=== PATIENT | female | born 1990 | race Caucasian/White ===

== ENCOUNTER 2023-11-28 16:56 | Inpatient (IN) | payer MEDICAID, SELFPAY ==
[2023-11-28 16:30] VITALS: BP 127/85; PULSE 91
--- NOTE | 2023-11-28 16:34 | PCM.HP.OB ---
HPI - General General Date of Admission: 11/28/23 HPI Narrative DELMAR LONG, is a 32 F @ 40 weeks who presents for IOL due to decreased FM and Variable on NST. pt was seen in office for decreased movement - had Variable on NST and discussion about IOL was had with patient. Pt agreeable at this time. NST FHR Rate Baby A Baseline: 130 Variability:: Moderate Accelerations:: 15 x 15 Decelerations:: None NST Reactive:: Yes FHR Category:: Category I Uterine Activity:: occasional Vital Signs Vital Signs Vital Signs: 11/28/23 16:30 11/28/23 16:30 Pulse Rate 91 Blood Pressure 127/85 H BP Systolic 127 BP Diastolic 85 Labs Labs Labs: No Data to Display Assessment & Plan (1) Obesity affecting in third trimester: (2) Tobacco use disorder affecting in third trimester, antepartum: (3) Excessive weight gain during in third trimester: (4) Decreased movement affecting management of mother, antepartum: (5) 40 weeks gestation of : PLAN: Plan Admit to L&D Montior FHR/TOCO Epidural if requested for pain Monitor VS Anticipate BRAGA/Cytotec
[2023-11-28 16:57] VITALS: BMI 41.3
[2023-11-28 19:16] LABS: Absolute Lymphocyte Count 2.83 X10^3/uL (0.83-4.51); Absolute Neutrophil Count 12.4 X10^3/uL (2.0-7.7); Basophil# 0.08 X10^3/uL; Basophil% 0.5 % (0-1); Eosinophil# 0.49 X10^3/uL; Eosinophils% 2.8 % (0-5); Hematocrit 37.1 % (37-47); Hemoglobin 12.6 g/dL (12.0-15.0); Lymphocyte # 2.83 X10^3/ul (0.83-4.51); Mean Corpuscular Hgb 31.9 pg (27.0-32.0); Mean Corpuscular Volume 93.9 fL (81-99); Mean Platelet Vol. 8.9 fl (6.2-12.0); Monocyte# 1.38 X10^3/uL; Monocyte% 7.8 % (0-10); NRBC Flagged by Analyzer 0 % (0-5); Neutrophil # 12.37 X10^3/uL (2.7-7.7); Platelet Count 367 K/mm3 (150-450); RBC Distribution Width CV 13.7 % (11.6-14.6); RBC Distribution Width SD 46.4 fl (35.1-43.9); Red Blood Count 3.95 M/mm3 (4.2-5.4); White Blood Count 17.7 K/mm3 (4.4-11.0)
[2023-11-28] MEDS: 0.9% Normal Saline Single 100 ML IV.SOLN. INTRA-UTER (19:20)
[2023-11-28 19:27] VITALS: BP 138/83; PULSE 229; PULSE 68; RESP 16; TEMP 36.3; O2SAT 83; O2SAT 98
--- NOTE | 2023-11-28 19:32 | PCM.PN.BLA ---
Progress Note Pt seen at bedside, transcervical ramsey placed. FHR Cat 1, occasional ctx. Will start Cytotec 8pm , when ramsey out will start pitocin.
[2023-11-28 19:51] LABS: Syphilis Antibodies Non-reactive
[2023-11-28] MEDS: miSOPROStol 25 MCG TABLET PO (19:55)
[2023-11-28] MEDS: Lactated Ringers 1,000 ML 50 ML IV (21:55)
[2023-11-28 23:47] VITALS: PULSE 81; RESP 16; TEMP 36.3; O2SAT 97
[2023-11-28 23:48] VITALS: BP 119/68; PULSE 78
[2023-11-29] VITALS (56 sets, daily range): BP systolic 88–137; BP diastolic 48–88; PULSE 68–163; RESP 14–141; TEMP 36.1–37; O2SAT 82–100
[2023-11-29] MEDS: Oxytocin 15 Units/NS 250ml 15 UNITS/250 ML IV.SOLN 2 UNITS IV (00:05)
[2023-11-29 00:51] LABS: Amphetamine Urine VISTA NEGATIVE (<1000 ng/mL); Barbiturate Urine VISTA NEGATIVE (< 200 ng/mL); Benzodiazepine Urine VISTA NEGATIVE (< 200 ng/mL); Cocaine Urine VISTA NEGATIVE (< 300 ng/mL); Ecstacy Urine VISTA NEGATIVE (< 500 ng/mL); Methadone Urine VISTA NEGATIVE (< 300 ng/mL); PCP Urine VISTA NEGATIVE (< 25 ng/mL); THC Urine VISTA NEGATIVE (< 50 ng/mL); Vista UDS pH Range 6
[2023-11-29] MEDS: LACTATED RINGERS 500 ML 999 ML IV ×2 (02:16→03:20)
[2023-11-29] MEDS: Lactated Ringers 1,000 ML 999 ML IV (05:30)
[2023-11-29] MEDS: fentaNYL-bupivacaine (epidural) 100 ML BAG EPIDURAL (06:46)
[2023-11-29] MEDS: Lactated Ringers 1,000 ML 200 ML IV (07:00)
--- NOTE | 2023-11-29 08:01 | PCM.PN.CNM ---
Subjective Subjective Patient seen at bedside. Comfortable with epidural. Objective Data Objective Data Vital Signs: Vital Signs Temp Pulse Resp BP Pulse Ox 97.5 F L 163 H 141 H 106/64 82 11/29/23 07:24 11/29/23 07:35 11/29/23 07:24 11/29/23 07:35 11/29/23 07:35 Weight: 233 lb 2 oz Body Mass Index (BMI) 41.3 Intake & Output: Intake and Output for Last 24 Hours 11/27/23 11/28/23 11/29/23 23:59 23:59 23:59 Intake Total 1257.04 / 1257.04 Balance 1257.04 / 1257.04 Lab / Micro Data 11/28/23 18:50 Labs: Laboratory Results - last 24 hr 11/28/23 18:50: WBC 17.7 H, RBC 3.95 L, Hgb 12.6, Hct 37.1, MCV 93.9, MCH 31.9, MCHC 34.0, RDW Std Deviation 46.4 H, RDW Coeff of Luanne 13.7, Plt Count 367, MPV 8.9, Immature Gran % (Auto) 2.900 H, Neut % (Auto) 70.0, Lymph % (Auto) 16.0 L, Wilkinson % (Auto) 7.8, Eos % (Auto) 2.8, Baso % (Auto) 0.5, Absolute Neuts (auto) 12.4 H, Absolute Lymphs (auto) 2.83, Nucleated RBC % 0, Syphilis Total Ab Non-reactive, Antibody Screen NEGATIVE 11/28/23 23:38: Urine Opiates Screen NEGATIVE, Urine Methadone Screen NEGATIVE, Ur Barbiturates Screen NEGATIVE, Ur Phencyclidine Scrn NEGATIVE, Ur Amphetamines Screen NEGATIVE, MDMA (Ecstasy) Screen NEGATIVE, U Benzodiazepines Scrn NEGATIVE, Urine Cocaine Screen NEGATIVE, U Cannabinoids Screen NEGATIVE, Ur Drug Screen Comment ROS Eyes Eyes: Denies blurry vision Cardiovascular Cardiovascular: Reports none; Denies chest pain at rest, chest pain with activity or dizziness Respiratory/Chest Respiratory/Chest: Denies cough or dyspnea Gastrointestinal Gastrointestinal: Reports none and other; Denies diarrhea or vomiting Genitourinary Genitourinary: Denies dysuria Musculoskeletal Musculoskeletal: Reports none Integumentary Integumentary: Reports none; Denies rash Neurologic Neurologic: Denies dizziness, headache(s) or other visual disturbances Psychiatric Psychiatric: Reports none Physical Exam Const alert and no apparent distress General Appearance: cooperative Orientation / Consciousness: awake Exam Limitations: no limitations HEENT normocephalic Head and Scalp: normal to inspection Eyes General Eye: normal appearance of both eyes Neck full ROM Lymph Lymphatic: no lymphadenopathy noted Chest inspection of chest normal Resp normal respiratory effort and normal air movement Effort and Inspection: symmetric chest movement Auscultation: clear to auscultation bilaterally Cardio regular rate GI soft to palpation, non-tender and non-distended Inspection: and other Manual OB Exam: presentation cephalic, dilated 4, effaced 60 and station -2 Amniotic Fluid: clear amniotic fluid Back/Spine normal ROM Extremity no calf tenderness Skin no rashes or lesions noted General Skin Exam: no breakdown Neuro oriented x3 and CN's II-XII intact bilaterally Psych mental status grossly normal Assessment & Plan (1) 40 weeks gestation of : (2) Decreased movement affecting management of mother, antepartum: (3) Excessive weight gain during in third trimester: (4) Tobacco use disorder affecting in third trimester, antepartum: (5) Obesity affecting in third trimester: (6) Depression: (7) Psychiatric disorder: COMMENT: PTSD (8) POTS (postural orthostatic tachycardia syndrome): (9) Anxiety: PLAN: Plan Cat. 2 tracing at times Pitocin IV currently off AROM for moderate amount of clear fluid CE 60/-2 FSE and IUPC placed without difficulty
[2023-11-29] MEDS: Amnioinfusion- 0.9% NS 1,000 ML IV.SOLN. INTRA-UTER (09:03)
[2023-11-29] MEDS: Acetaminophen 500 MG Tablet PO (10:23)
[2023-11-29] MEDS: Sodium Citrate/Citric Acid 30 ML UDC PO (10:23)
--- NOTE | 2023-11-29 10:27 | OP.PCM_ITS ---
Maternal Data Information MELANIE Calculator Estimated Delivery Date Method Current WG Current Estimate 11/26/23 Manual 40w 3d Details Operative Information Date of Procedure: 11/29/23 Pre-Operative Diagnosis: (1) Inability of fetus to tolerate labor Post-Operative Diagnosis: Same Indications for : Repeat Elective and Nonreassuring Status Indications Narrative: The patient's pitocin was restarted and just over 1 hour later recurrent decelerations were noted. Cervical exam was stable. Patient was on only 2 of pitocin and this was the second time the pitocin was stopped. Shared decision making with the patient occurred and the decision was made to proceed with a primary . Patient was remote from delivery and was aware of R/B/A of options. The patient was taken to the operating room where epidural anesthesia was dosed & found to be adequate. She was prepped and draped in the dorsal supine position with a leftward tilt. A Pfannenstiel skin incision was made approximately 2 cm above the symphysis pubis and carried through to the underlying fascia with the scalpel. The fascia was incised incised in the midline and extended laterally with the Montano scissors. The rectus muscles were in the midline and the peritoneum was entered carefully and bluntly. The peritoneal incision was stretched and the bladder blade was inserted. Vesicouterine peritoneum was tented up, incised & then bladder flap created gently. The uterine incision was made in a low transverse fashion with the scalpel and extended superiorly and inferiorly with blunt dissection. The infant's head was brought to the incision in the flexed position and delivered without difficulty. The head was gently guided to allow delivery of the anterior and posterior shoulders. The body then delivered with fundal pressure in the standard fashion. The 3VC cord was clamped and cut. The infant was handed off to the waiting general pediatrician. The placenta was delivered with fundal massage and gentle traction in the standard fashion. The uterus was exteriorized and cleared of clots and debris. The uterine incision was closed with #1 Vicryl suture in a running locked fashion. Monocryl suture was used in an imbricating fashion. [address] itch placed using 3-0 vicryl on left side of incision done for excellent hemostasis. The incision was examined and was found to be hemostatic. The uterus was returned to the abdominal cavity. After irrigating Tom was placed over the uterine incision as some areas were denuded (but hemostatic). The rectus muscle was examined and any bleeding was Bovie cauterized. The fascia was closed with PDS suture in a running standard fashion. The subcutaneous tissue was examining and any bleeding was Bovie cauterized. The subcutaneous tissue was reapproximated with interrupted sutures. The skin was closed in a subcuticular fashion by the BENEFITS PROCESSOR while I was present in the labor & delivery unit. The remainder of the procedure was performed by me with assistance. All sponge, lap, and needle counts were correct. The patient was taken to her room for recovery in a stable condition. Classification: MARK Procedure Type: low transverse industrial waste inspector #1: Jessica Burris Type of Anesthesia: Spinal Antibiotic Given: Ancef 2 grams IV x1 and Zithromax 500 mg/5 mL X1 Drain: Dang to straight drain Estimated Blood Loss: 800ml Fluids Replaced: 1000ml Procedure Start Time: 10:45 Procedure Stop Time: 11:29 Findings Description of Procedure: Normal maternal uterus and adnexa Presentation: Positive for Vertex Amniotic Membrane Rupture Type: Artificial Amniotic Fluid Description: Clear Placenta Disposition: [facility] Cord Vessel Description: 3 Vessels Cord Entanglement: None A Gender: Male (weight = 8lbs) (1 minute): 8 (5 minute): 9 Delayed Cord Clamping: No Complications Complications: None
[2023-11-29] MEDS: Cefazolin 2 GM in 0.9% Normal Saline (100mL Bag) 100 ML IV (10:35)
[2023-11-29] MEDS: Azithromycin 500 MG in Dextrose 5%-Water (250mL Bag) 250 ML 250 MG IV (11:00)
[2023-11-29] MEDS: Oxytocin 15 Units/NS 250ml 15 UNITS/250 ML IV.SOLN 83 UNITS IV (11:45)
[2023-11-29] MEDS: Ketorolac 30 MG/ML Syringe IV ×2 (13:40→19:49)
[2023-11-29] MEDS: Lactated Ringers 1,000 ML 100 ML IV (14:27)
--- NOTE | 2023-11-29 14:50 | NURSING ---
Epidural catheter removed. Blue tip intact. patient tolerated well.
[2023-11-29] MEDS: Acetaminophen 500 MG Tablet 1000 MG PO ×2 (16:09→21:35)
[2023-11-29] MEDS: Enoxaparin 40 MG/0.4 ML Syringe SC (21:35)
[2023-11-30] VITALS (7 sets, daily range): BP systolic 102–114; BP diastolic 52–71; PULSE 83–104; RESP 14–18; TEMP 36.3–37; O2SAT 97–98
[2023-11-30] MEDS: 0.9% Saline Lock 10 ML Syringe IV (03:04)
[2023-11-30] MEDS: Ketorolac 30 MG/ML Syringe IV ×2 (03:04→08:49)
[2023-11-30] MEDS: Acetaminophen 500 MG Tablet 1000 MG PO ×4 (04:26→22:19)
[2023-11-30 04:37] LABS: Hematocrit 27.4 % (37-47); Hemoglobin 9.3 g/dL (12.0-15.0); Mean Corp Hgb Conc 33.9 g/dL (32-36); Mean Corpuscular Hgb 32.6 pg (27.0-32.0); Mean Corpuscular Volume 96.1 fL (81-99); Mean Platelet Vol. 8.3 fl (6.2-12.0); Platelet Count 232 K/mm3 (150-450); RBC Distribution Width CV 13.8 % (11.6-14.6); Red Blood Count 2.85 M/mm3 (4.2-5.4); White Blood Count 25.4 K/mm3 (4.4-11.0)
--- NOTE | 2023-11-30 08:46 | PCM.PN.OB ---
Subjective Subjective Doing well. No complaints. Ambulating without difficulty. Voiding. Pain controlled. Mild lochia Objective Data Objective Data Vital Signs: Vital Signs Temp Pulse Resp BP Pulse Ox O2 Del Method 98.6 F 91 18 104/64 98 Room Air 11/30/23 08:31 11/30/23 08:31 11/30/23 08:31 11/30/23 08:31 11/30/23 05:24 11/30/23 08:31 Oxygen Delivery Method Room Air Weight: 105.744 kg Body Mass Index (BMI) 41.3 Intake & Output: Intake and Output for Last 24 Hours 11/28/23 11/29/23 11/30/23 23:59 23:59 23:59 Intake Total 4317.48 / 4317.48 1000 / 1000 Output Total 2350 / 2350 1000 / 1000 Balance 1967.48 / 1967.48 0 / 0 Lab / Micro Data 11/30/23 04:30 Labs: Laboratory Results - last 24 hr 11/30/23 04:30: WBC 25.4 H, RBC 2.85 L, Hgb 9.3 L, Hct 27.4 L, MCV 96.1, MCH 32.6 H, MCHC 33.9, RDW Std Deviation 48.0 H, RDW Coeff of Luanne 13.8, Plt Count 232, MPV 8.3 ROS Eyes Eyes: Denies blurry vision Cardiovascular Cardiovascular: Reports none; Denies chest pain at rest, chest pain with activity or dizziness Respiratory/Chest Respiratory/Chest: Denies cough or dyspnea Gastrointestinal Gastrointestinal: Reports none and other; Denies diarrhea or vomiting Genitourinary Genitourinary: Denies dysuria Musculoskeletal Musculoskeletal: Reports none Integumentary Integumentary: Reports none; Denies rash Neurologic Neurologic: Denies dizziness, headache(s) or other visual disturbances Psychiatric Psychiatric: Reports none Physical Exam Const alert General Appearance: cooperative GI GI Narrative: soft, moderate distention, fundus firm, appropriately tender. Abdominal bandage clean dry and intact Assessment & Plan (1) S/P primary low transverse : PLAN: Plan Routine care
[2023-11-30] MEDS: Senna/Docusate Sodium 1 Tablet PO (10:07)
[2023-11-30] MEDS: Enoxaparin 40 MG/0.4 ML Syringe SC ×2 (10:07→22:19)
[2023-11-30] MEDS: Ibuprofen 600 MG Tablet PO ×2 (14:24→20:27)
--- NOTE | 2023-11-30 15:22 | CASEMGMT ---
Social Work Assessment Labor and Delivery Unit Patient Address: [address] [place] [address] Phone number: [phone] Date of Referral: 11/29/23 Time of Referral:? 151 Referred By: Dr. Serrano Date of Intervention: ?11/30/23? Time of Intervention:? 1230 Reason for Referral:? anxiety and depression Sw completed chart review and acknowledges social work consult due to maternal mental health history. Sw presented to bedside and introduced self to mother of baby (MOB- Pat) and father of baby (FOB- Axel). Sw explained sw role and completed psychosocial assessment. History obtained from: medical records, MOB and FOB Household composition: Currently residing in the family home is MOB, FOB and baby when ready for discharge. HOOD has another son, Miguel who is 13 who will also be around. Parents deny any problems or concerns with housing at this time. Patient's parent/guardian status:? ?Parents state that they have been together for 9 years after meeting through mutual friends. NO concerns reported of domestic violence or intimate partner violence. Medical History: ?CYNDIE is 32 year old female who is 1, para 0- now 1 following labor and delivery of . CYNDIE received routine care during with [facility]. CYNDIE presented to hospital for an induction of labor due to decreased movement and ended up requiring primary at 40 weeks gestation on 11/29/23. Baby boy named, Saniya was born weighing 7lb 16oz with apgars of 8 and 9 at one and five minutes of life, respectfully. Baby will be seen by [facility] for pediatrics. CYNDIE states that she is working on breast feeding and using for support. Educational Status:? Both parents graduated from high school. NO concerns with reading, learning or comprehension. Financial Status: FOKaron is gainfully employed outside of the home working at [employer]. MOB is unemployed and will stay home with baby. Supplies:?? Parents have obtained all necessary baby supplies, including: car seat, safe sleep space, clothes, diapers and wipes. Childcare/Caregiver(s):?MOB will be the primary caregiver to baby along with FOB. Transportation:?? Both parents have their drivers license and reliable means of transportation. Programs/Agencies Involved: ???CYNDIE states that she has insurance through [email or web address] and Family Services and was reminded to add baby to insurance within 30 days. MOB states that she also has WIC. Children Services/Legal Issues:???No prior involvement with children services. Forest informed MOB that she will be making referral to [facility] due to maternal substance use during . MOB expressed understanding and states that she was aware that it would be necessary. - Forest called [facility] and made referral regarding maternal substance use. Behavioral Health Issues: ??Mental Health History:?FOB denies mental health history. MOB states that she has been diagnosed with anxiety, depression and PTSD. MOB states that she did really good with her mental health during her . MOB is not prescribed any medications to help manage her mental health symptoms at this time. MOB is not connected to any mental health services or supports. ?? Substance Use History:?MOB admits to smoking marijuana throughout until 20 weeks gestation. ? Family History:?Parents deny family history of substance use or addiction, or significant mental health diagnoses. ? Drug Screens: ??MOB urine screen and baby screen were negative for all substances at time of delivery. Family/Social Stressors:? Parents deny any issues or concerns at this time. Forest asked MOB how she has been doing with her mental health throughout and delivery. MOB states that she is extremely excited that baby is here. Support Systems: MOB reports that FOB is her biggest support person. FOB states that if MOB were to struggle with her mental health during this period that he would be able to recognize that and would know how to help and support her. Depression/Shaken Baby/Safe Sleeping:?Forest educated parents at length regarding signs and symptoms of baby blues and mood and anxiety disorders. MOB states that she had done some research already on these topics. FOB receptive to learning more about what to expect during this time. Forest educated parents on shaken baby prevention and ABCs of safe sleep. Parents express understanding. ASSESSMENT:? MOB and baby admitted following labor and delivery. MOB with mental health history positive for PTSD, anxiety and depression. MOB states that she has healthy and appropriate coping skills to utilize if she ever feels like she is struggling. FOB observed to be a positive support person for MOB. FOB observed to provide hands on, loving and appropriate care to baby. Parents have natural supports in place and have obtained all necessary baby supplies. Safe Plan of Care for related to substance use:? MOB states that she does not have intentions of smoking now that baby is born. PLAN:? MOB and baby to be discharged when medically ready. ?No other services requested or indicated. Troy Reynoso, RN NIGHT, MANAGER OF IT
[2023-12-01] MEDS: Ibuprofen 600 MG Tablet PO ×2 (02:47→08:37)
[2023-12-01 02:48] VITALS: BP 110/64; PULSE 98; RESP 16; TEMP 36.3; O2SAT 97
[2023-12-01] MEDS: Acetaminophen 500 MG Tablet 1000 MG PO ×2 (04:41→10:46)
--- NOTE | 2023-12-01 07:39 | PCM.PN.OB ---
Subjective Subjective Doing well. No complaints. Ambulating without difficulty. Voiding. Pain controlled. Mild lochia Objective Data Objective Data Vital Signs: Vital Signs Temp Pulse Resp BP Pulse Ox O2 Del Method 97.4 F L 98 16 110/64 97 Room Air 12/01/23 02:48 12/01/23 02:48 12/01/23 02:48 12/01/23 02:48 12/01/23 02:48 12/01/23 02:48 Oxygen Delivery Method Room Air Weight: 105.744 kg Body Mass Index (BMI) 41.3 Intake & Output: Intake and Output for Last 24 Hours 11/29/23 11/30/23 12/01/23 23:59 23:59 23:59 Intake Total 4317.48 / 4317.48 1000 / 1000 Output Total 2350 / 2350 1000 / 1000 Balance 1966.48 / 1966.48 0 / 0 Lab / Micro Data 11/30/23 04:30 ROS Eyes Eyes: Denies blurry vision Cardiovascular Cardiovascular: Reports none; Denies chest pain at rest, chest pain with activity or dizziness Respiratory/Chest Respiratory/Chest: Denies cough or dyspnea Gastrointestinal Gastrointestinal: Reports none and other; Denies diarrhea or vomiting Genitourinary Genitourinary: Denies dysuria Musculoskeletal Musculoskeletal: Reports none Integumentary Integumentary: Reports none; Denies rash Neurologic Neurologic: Denies dizziness, headache(s) or other visual disturbances Psychiatric Psychiatric: Reports none Physical Exam Const alert General Appearance: cooperative GI GI Narrative: soft, moderate distention, fundus firm, appropriately tender. Abdominal bandage clean dry and intact Assessment & Plan (1) S/P primary low transverse : PLAN: Plan Discharge home
--- NOTE | 2023-12-01 07:54 | PCM.DC.SUM ---
Providers Date of Admission: 11/28/23 Date of Discharge: 12/01/23 Primary Care Physician: No Primary Care Phys Reason For Visit: PRIMARY Diagnosis Discharge Diagnosis (1) S/P primary low transverse : Status: Acute Code(s): Z98.891 - History of uterine scar from previous surgery Plan Discharge home Medications at Discharge Home Medications docusate sodium 100 mg capsule (Dulcolax Stool Softener (docusate)) 100 mg PO DAILY 11/28/23 vits no.130-ferrous fum 27 mg iron-folic acid 800 mcg tablet ( Vitamin) tab PO DAILY pregancy 11/28/23 acetaminophen 500 mg tablet 1,000 mg (2 x 500 mg) PO Q6H #30 tabs 12/01/23 ibuprofen 600 mg tablet 600 mg PO Q6H #30 tabs 12/01/23 Hospital Course Operations section Procedures None Summary of Care Provided Minutes Spent on Discharge: 22 Hospital Course: IOL for Decreased movement, Primary for intolerance to labor. Uncomplicated course. Breast feeding on discharge Physical Exam Const alert General Appearance: cooperative GI GI Narrative: soft, moderate distention, fundus firm, appropriately tender. Abdominal bandage clean dry and intact Weight / BMI Weight Weight: 105.744 kg Body Mass Index (BMI) 41.3 ABG / Lab / Microbiology Data 11/30/23 04:30 D/C Instructions Discharge Diet: No restrictions May resume sexual activity in: 4-6 weeks Lifting Restrictions: 20 pounds Additional Activity Instructions: Nothing in the vagina for 4-6 weeks. You may return to work/school in 6 weeks. Call your doctor if your incision/area has: Continuous Slow Oozing, Sudden Increased Bleeding, Increased Pain/ Swelling, Increased Redness and Foul Smelling Discharge Call your doctor if you observe: Fever of 101 or Higher and Using more than 1 pad per hour (for 2 hours) Suture Line Care: Avoid Pulling/Pushing and Avoid Pinching/Bending Cleanse incision/area with: Keep Dressing Clean & Dry Please Follow Up With: Zuleima Donnelly MD When: Call to make an appointment for an incision check in 1-2 [phone]. You will need a post check in 6 weeks. Meaningful Use Info Meaningful Use Meaningful Use Diagnoses (Choose all that apply): None applicable Ischemic Stroke Statin Dosing Therapy Reference: STATIN DOSE THERAPY REFERENCE: * Patients > 75 years receive moderate or high dose statin therapy. * Patients 75 years or YOUNGER should receive HIGH intensity statin dose unless contraindicated. You will be required to document reason for non-treatment if statin daily dose does not meet guidelines. HIGH DOSE STATIN THERAPY DAILY Atorvastatin > than or = to 40 mg Rosuvastatin > than or = to 20 mg Amlodipine + Atorvastatin > than or = to 2.5/40 mg Ezetimibe + Simvastatin 10/80 mg Simvastatin 80mg Discharge Plan Admission Admit Date/Time: 11/28/23 16:56 Primary Reason for Your Visit: Induction Attending Provider: Zach Manuel Primary Care Provider: Care Physician,Bethany Primary Discharge Orders/Prescriptions Prescriptions: New acetaminophen 500 mg Tablet 1,000 mg PO Q6H Qty: 30 0RF ibuprofen 600 mg Tablet 600 mg PO Q6H Qty: 30 0RF Continued docusate sodium [Dulcolax Stool Softener (dss)] 100 mg capsule 100 mg PO DAILY Vitamin 27 mg iron- 800 mcg tablet PO DAILY Referrals / Follow Up: Care Physician,No Primary [Primary Care Provider] - Disposition Disposition (needs filled in before D/C Order can be placed): Home, Self Care
[2023-12-01 08:00] VITALS: BP 125/75; PULSE 83; RESP 16; TEMP 36.6; O2SAT 99
[2023-12-01] MEDS: Senna/Docusate Sodium 1 Tablet PO (08:37)
[2023-12-01] MEDS: Enoxaparin 40 MG/0.4 ML Syringe SC (10:46)
[2023-12-01] MEDS: FLU VACC 2024-25(6MOS UP)/PF 45 MCG/0.5 ML SYRINGE IM (10:47)
[2023-12-01 13:38] VITALS: BP 139/62; PULSE 91; RESP 16; TEMP 36.2; O2SAT 99
== END 2023-12-01 14:30 | disposition home or self-care (01) | DRG 540 ==
PROVIDERS: Obstetrics & Gynecology; Admitting Provider Obstetrics & Gynecology; Referring Provider Obstetrics & Gynecology; Visit Provider Obstetrics & Gynecology
DX: O36.8130 Decreased fetal movements, third trimester, not applicable or unspecified (principal); F17.200 Nicotine dependence, unspecified, uncomplicated; O76 Abnormality in fetal heart rate and rhythm complicating labor and delivery; O99.334 Smoking (tobacco) complicating childbirth; Z37.0 Single live birth; Z3A.40 40 weeks gestation of pregnancy
CPT/HCPCS: 59025; 59050; 80307; 85025; 85027; 86780; 86850; 86900; 86901; 90656; 99221; J7030; J7120; A4216; G0378; J2405